=== PATIENT | male | born 1930 | race Two or more races ===

== ENCOUNTER 2018-03-05 18:42 | Emergency (ER) | payer MEDICARE, OTHER ==
[~2018-03-05] VITALS: Ht 172.7 cm; Wt 86.2 kg
[2018-03-05] MEDS: IV NORMAL SALINE 1000 ML BAG IV ONE (19:01)
--- NOTE | 2018-03-05 19:02 | NUR ---
PT IS IN ROOM #1A. DR GU EVALUATED THE PT.
[2018-03-05] MEDS ORDERED: ALEN70TA3 PO (19:04)
[2018-03-05] MEDS ORDERED: POTA20TA83 PO (19:04)
[2018-03-05] MEDS ORDERED: AZIT250T PO (19:04)
[2018-03-05] MEDS ORDERED: INSU100C SQ (19:04)
[2018-03-05] MEDS ORDERED: MULT-31 PO (19:04)
[2018-03-05] MEDS ORDERED: FURO80TA87 PO ×2 (19:04)
[2018-03-05] MEDS ORDERED: ACET-2605 PO (19:04)
[2018-03-05] MEDS ORDERED: VENL37.591 PO (19:04)
[2018-03-05] MEDS ORDERED: INSU100V7 SQ (19:04)
[2018-03-05] MEDS ORDERED: ASPI81TA31 PO (19:04)
[2018-03-05] MEDS ORDERED: OMEP20CA10 PO (19:04)
[2018-03-05] MEDS ORDERED: GABA-534 PO (19:04)
[2018-03-05] MEDS ORDERED: DEXT1DRO10 OP (19:04)
[2018-03-05] MEDS ORDERED: CALC-870 PO (19:04)
[2018-03-05] MEDS ORDERED: GUAIFENESIN PO (19:04)
[2018-03-05] MEDS ORDERED: SPIR25TA6 PO (19:04)
[2018-03-05] MEDS ORDERED: CARV12.52 PO (19:04)
[2018-03-05] MEDS ORDERED: HUMALOG INSULIN SQ (19:04)
[2018-03-05] MEDS ORDERED: ISOS30TA6 PO (19:04)
[2018-03-05] MEDS ORDERED: BENZ-13 PO (19:04)
[2018-03-05] MEDS ORDERED: ATOR40TA PO (19:04)
[2018-03-05] MEDS ORDERED: CHOL100045 PO (19:04)
--- NOTE | 2018-03-05 19:07 | NUR ---
REPORT GIVEN TO NORMAN LARA.
--- NOTE | 2018-03-05 19:10 | NUR ---
Recieved report from axel AUSTIN
--- NOTE | 2018-03-05 19:12 | NUR ---
psych tech. at bedside for blood draw
[2018-03-05 19:14] LABS: BASOPHILS # (AUTO) 0.2 K/uL (0.0-8.0); BASOPHILS % (AUTO) 1.2 % (0.0-2.0); EOSINOPHILS # (AUTO) 0.2 K/uL (0.0-0.7); EOSINOPHILS % (AUTO) 1.2 % (0.0-7.0); HEMATOCRIT 29.2 % (36.7-47.1); HEMOGLOBIN 9.6 g/dL (12.5-16.3); LYMPHOCYTES # (AUTO) 1.9 K/uL (20.0-40.0); LYMPHOCYTES % (AUTO) 13.6 % (20.5-51.5); MEAN CORPUSCULAR HGB CONC 33 g/dL (32.5-36.3); MEAN CORPUSCULAR VOLUME 88.1 fL (73.0-96.2); MONOCYTES # (AUTO) 0.8 K/uL (2.0-10.0); MONOCYTES % (AUTO) 6.1 % (0.0-11.0); NEUTROPHILS # (AUTO) 10.6 K/uL (1.8-8.9); NEUTROPHILS % (AUTO) 77.9 % (38.5-71.5); PLATELET COUNT (AUTO) 215 K/uL (152-348); RED BLOOD CELL COUNT(AUTO) 3.31 MIL/uL (4.06-5.63); WHITE BLOOD COUNT (AUTO) 13.7 K/uL (3.6-10.2)
[2018-03-05 19:21] LABS: CARBON DIOXIDE 33 mmol/L (21-32); CHLORIDE 96 mmol/L (98-107); GLUCOSE 155 mg/dL (74-106); POTASSIUM 4.1 mmol/L (3.5-5.1); UREA NITROGEN, BLOOD 58 mg/dL (7-18)
[2018-03-05 19:37] LABS: ALANINE AMINOTRANSFERASE 32 U/L (16-63); ALKALINE PHOSPHATASE 58 U/L (50-136); ASPARTATE AMINOTRANSFERASE 22 U/L (15-37); BILIRUBIN,DIRECT 0.1 mg/dL (0.0-0.2); BILIRUBIN,TOTAL 0.3 mg/dL (0.2-1.0); TOTAL PROTEIN, SERUM 6.2 g/dL (6.4-8.2)
[2018-03-05] MEDS ORDERED: FUROSEMIDE 40 MG/4 ML VIAL ONE (20:31)
[2018-03-05] MEDS: FUROSEMIDE 20 MG/2 ML VIAL IV ONE (20:44)
--- NOTE | 2018-03-05 21:27 | NUR ---
CALLED [facility]. SPOKE WITH [facility]. DR JUAN RODRIGUEZ FROM [facility] WILL CALL BACK
[2018-03-05] MEDS ORDERED: ACETAMINOPHEN 325 MG TABLET ONE (22:14)
[2018-03-05] MEDS: ACETAMINOPHEN 325 MG TABLET PO ONE (22:19)
--- NOTE | 2018-03-05 22:30 | NUR ---
Called [facility] to give report, left on hold for 20 min., will try again later
--- NOTE | 2018-03-05 22:55 | NUR ---
Called [facility] a second time to give report, put on hold 10 min, will try [facility]isa later,
--- NOTE | 2018-03-05 23:19 | NUR ---
Gave report to Antonio AUSTIN at [facility], ambulance here for transport
== END 2018-03-05 23:38 | disposition short-term general hospital (02) ==
LOC: ER 18:46
DX: I50.9 Heart failure, unspecified (principal); R19.7 Diarrhea, unspecified; N17.9 Acute kidney failure, unspecified; E11.9 Type 2 diabetes mellitus without complications; I25.10 Atherosclerotic heart disease of native coronary artery without angina pectoris; I48.91 Unspecified atrial fibrillation; Z95.1 Presence of aortocoronary bypass graft; Z88.6 Allergy status to analgesic agent; Z88.8 Allergy status to other drugs, medicaments and biological substances; Z79.4 Long term (current) use of insulin; Z79.82 Long term (current) use of aspirin; Z79.899 Other long term (current) drug therapy
CPT/HCPCS: 36415; 71045; 80048; 80076; 82962; 83605; 83880; 84484; 85025; 85730; 87040 ×2; 93005; 96374; 99285; J1940; 70030-TC; A4663; A9150; J7030